=== PATIENT | female | born 1990 | race Caucasian/White ===

== ENCOUNTER 2018-02-24 06:09 | Day surgery (SDC) | payer OTHER ==
[~2018-02-24] VITALS: Ht 152.4 cm; Wt 136.1 kg
--- NOTE | ~2018-02-24 | OP ---
PATIENT NAME: ANGELA DAVENPORT MEDICAL RECORD: [id number] :88 LOCATION:[facility] ADMISSION DATE: SURGEON: NEVILLE ESCAMILLA MD DATE OF OPERATION: 02/24/2018 PREOPERATIVE DIAGNOSIS: Missed . POSTOPERATIVE DIAGNOSIS: Missed . PROCEDURE: Dilation and evacuation. SURGEON: Neville Escamilla MD ANESTHESIOLOGIST: Oliver Morfin MD ANESTHETIC: General anesthetic with endotracheal intubation. FINDINGS: Uterus is 8-week size. Moderate amounts of products of conception returned at the time of suction D&E. SPECIMEN REMOVED: Products of conception. SPECIMEN DISPOSITION: Pathology. ESTIMATED BLOOD LOSS: Less than or equal to 75 cc. FLUIDS: 800 cc lactated Ringer's. URINE OUTPUT: Quantity sufficient void prior to this procedure. COMPLICATIONS: None. DRAINS: None. INDICATIONS: The patient is a 27-year-old female with a known missed . The patient is consented for dilation and evacuation. Risks and benefits have been described and she acknowledged understanding. DESCRIPTION OF PROCEDURE: After informed consent was assured, the patient was taken to the operating room where anesthetic was obtained and she was placed in stirrups. The patient now has speculum introduced in the vagina. The cervix was grasped and dilated to accommodate an 8 curved suction curette. This curette was passed to the fundus and suction applied. Products of conception is removed on several passes. Sharp curettage was now performed and good cry was obtained throughout. Another pass with the suction device removed all remaining clot and debris. The single tooth tenaculum was removed and the puncture sites occluded with ring forceps. The ring forceps were removed at the time of the patient being taken down from the stirrups. Sponge, lap, and needle counts correct times 2. The patient was awakened and went to the recovery room in stable condition. TRANSINT:[id number] Voice Confirmation ID: [id number] DOCUMENT ID: [id number] OPERATIVE REPORT [id number] ANGELA DAVENPORT NEVILLE ESCAMILLA MD CC: [id number] DICTATION DATE: 03/15/18 0749 STOCK MANAGER: 03/15/18 0809 [facility] 02/24/18 [facility] [address] [place] [address]
[2018-02-24 08:04] LABS: BASOPHILS 0.6 % (0-2); EOSINOPHILS 2.9 % (0-7); HEMATOCRIT 36.5 % (36.0-48.0); HEMOGLOBIN 12.1 g/dL (12-16); IMMATURE GRANULOCYTES 0.1 % (0-5); LYMPHOCYTES 22.2 % (15-50); MCH 29.7 pg (26.0-34.0); MCHC 33.2 g/dL (31.0-37.0); MCV 89.7 fL (80.0-100.0); MEAN PLATELET VOLUME 9.7 fL (7.4-10.4); MONOCYTES 8.6 % (2-11); NEUTROPHILS 65.6 % (40-80); PLATELET COUNT 309 10x3/uL (130-400); RBC 4.07 10x6/uL (4.00-5.40); RDW 14.3 % (11.5-14.5); WBC 8.3 10x3/uL (4.8-10.8)
[2018-02-24] MEDS ORDERED: PROTONIX40 MG PO (08:11)
[2018-02-24] MEDS ORDERED: VISTARIL50 MG PO (08:12)
[2018-02-24] MEDS ORDERED: PROZAC20 MG PO (08:12)
[2018-02-24] MEDS ORDERED: PRENATAL COMPLE1 TAB PO (08:12)
[2018-02-24] MEDS ORDERED: TIROSINT75 MCG PO (08:12)
[2018-02-24 08:22] VITALS: BP 145/79; Ht 152.4 cm; Wt 136.1 kg
== END 2018-02-24 12:15 | disposition home or self-care (01) ==
LOC: D.OPS 06:09
PROVIDERS: Obstetrics & Gynecology
DX: O02.1 Missed abortion (principal)

== ENCOUNTER → 2019-02-26 15:19 | Outpatient (CLI) | payer BC ==
[2018-02-24 08:22] VITALS: BMI 58.7
[~2019-02-26 15:19] MED LIST: PRENATAL COMPLE1 TAB PO; PROTONIX40 MG PO; PROZAC20 MG PO; TIROSINT75 MCG PO; VISTARIL50 MG PO
[2019-02-26 17:46] LABS: APPEARANCE CLEAR (CLEAR); BILIRUBIN NEGATIVE (NEGATIVE); COLOR YELLOW (YELLOW); GLUCOSE NEGATIVE (NEGATIVE); KETONE NEGATIVE (NEGATIVE); NITRITE NEGATIVE (NEGATIVE); PROTEIN NEGATIVE (NEGATIVE); UROBILINOGEN NORMAL (NORMAL)
== END | disposition home or self-care (01) ==
LOC: D.LDO 15:19
PROVIDERS: ATTEND Obstetrics & Gynecology
DX: O26.893 Other specified pregnancy related conditions, third trimester (principal); Z3A.31 31 weeks gestation of pregnancy

== ENCOUNTER 2019-03-13 20:47 | Outpatient (CLI) | payer BC | END 2019-03-14 02:41 | disposition home or self-care (01) | LOC: D.LDO 20:47 | DX: O26.893 Other specified pregnancy related conditions, third trimester (principal); Z3A.32 32 weeks gestation of pregnancy ==

== ENCOUNTER → 2019-03-23 09:28 | Outpatient (CLI) | payer BC ==
[2018-02-24 08:22] VITALS: BMI 58.7
[~2019-03-23 09:28] MED LIST changes: +ACETAMINOPHEN500 M1 PO; +BENADRYL50 MG; +COLACE100 MG PO; +CYCLOBENZAPRINE10 MG PO; +DILAUDID2 MG PO; +FOLIC ACID1 MG PO; +REGLAN10 MG PO; +TORADOL10 MG PO; +VITAMIN B-6100 MG PO; +XANAX2 MG PO
[2019-03-23 10:12] LABS: BASOPHILS 0.2 % (0-2); EOSINOPHILS 1.6 % (0-7); HEMATOCRIT 32.5 % (36.0-48.0); HEMOGLOBIN 10.7 g/dL (12-16); IMMATURE GRANULOCYTES 0.2 % (0-5); LYMPHOCYTES 10.9 % (15-50); MCHC 32.9 g/dL (31.0-37.0); MCV 88.1 fL (80.0-100.0); MEAN PLATELET VOLUME 9.8 fL (7.4-10.4); MONOCYTES 5.6 % (2-11); NEUTROPHILS 81.5 % (40-80); PLATELET COUNT 311 10x3/uL (130-400); RBC 3.69 10x6/uL (4.00-5.40); WBC 11.2 10x3/uL (4.8-10.8)
[2019-03-23 10:28] LABS: ALBUMIN 2.3 g/dL (3.4-5.0); ALKALINE PHOSPHATASE 188 U/L (46-116); ALT (SGPT) 17 U/L (10-68); BILIRUBIN - DIRECT 0.17 mg/dL (0.00-0.30); BILIRUBIN - INDIRECT 0.15 mg/dL (0.00-1.00); BILIRUBIN - TOTAL 0.32 mg/dL (0.2-1.3); CALC OSMOLALITY 275 mosm/kg (275-300); CALCIUM 8.8 mg/dL (8.5-10.1); CARBON DIOXIDE 24.6 mmol/L (21.0-32.0); CHLORIDE - SERUM 106 mmol/L (98-107); CREATININE - SERUM 0.6 mg/dL (0.6-1.3); GLUCOSE 96 mg/dL (74-106); POTASSIUM - SERUM 3.5 mmol/L (3.5-5.1); PROTEIN - SERUM 6.3 g/dL (6.4-8.2); SODIUM 139 mmol/L (136-145); UREA NITROGEN 8 mg/dL (7-18); URIC ACID 3.8 mg/dL (2.6-7.2); eGFR NON AFRICAN AMERICAN > 90 mL/min (90-120)
[2019-03-24 19:28] LABS: PROTEIN - URINE 42.6 mg/dL (0.0-11.9)
== END | disposition home or self-care (01) ==
LOC: D.LDO 09:28
PROVIDERS: ATTEND Obstetrics & Gynecology
DX: O16.3 Unspecified maternal hypertension, third trimester (principal); Z3A.34 34 weeks gestation of pregnancy

== ENCOUNTER → 2019-03-24 20:23 | Outpatient (CLI) | payer BC ==
[2018-02-24 08:22] VITALS: BMI 58.7
[~2019-03-24 20:23] MED LIST changes: -ACETAMINOPHEN500 M1 PO; -BENADRYL50 MG; -COLACE100 MG PO; -CYCLOBENZAPRINE10 MG PO; -DILAUDID2 MG PO; -FOLIC ACID1 MG PO; -REGLAN10 MG PO; -TORADOL10 MG PO; -VITAMIN B-6100 MG PO; -XANAX2 MG PO
[2019-03-24 20:56] LABS: BASOPHILS 0.2 % (0-2); EOSINOPHILS 1.1 % (0-7); HEMATOCRIT 30.7 % (36.0-48.0); HEMOGLOBIN 10.3 g/dL (12-16); IMMATURE GRANULOCYTES 0.4 % (0-5); LYMPHOCYTES 14.2 % (15-50); MCH 29.4 pg (26.0-34.0); MCHC 33.6 g/dL (31.0-37.0); MCV 87.7 fL (80.0-100.0); MEAN PLATELET VOLUME 10.2 fL (7.4-10.4); MONOCYTES 7.1 % (2-11); PLATELET COUNT 306 10x3/uL (130-400); WBC 11.3 10x3/uL (4.8-10.8)
[2019-03-24 21:09] LABS: ALBUMIN 2.1 g/dL (3.4-5.0); ALKALINE PHOSPHATASE 187 U/L (46-116); ALT (SGPT) 19 U/L (10-68); BILIRUBIN - DIRECT 0.16 mg/dL (0.00-0.30); BILIRUBIN - INDIRECT 0.12 mg/dL (0.00-1.00); BILIRUBIN - TOTAL 0.28 mg/dL (0.2-1.3); CALC OSMOLALITY 274 mosm/kg (275-300); CALCIUM 8.4 mg/dL (8.5-10.1); CARBON DIOXIDE 23.6 mmol/L (21.0-32.0); CHLORIDE - SERUM 104 mmol/L (98-107); CREATININE - SERUM 0.6 mg/dL (0.6-1.3); GLUCOSE 115 mg/dL (74-106); POTASSIUM - SERUM 3.4 mmol/L (3.5-5.1); SODIUM 138 mmol/L (136-145); UREA NITROGEN 7 mg/dL (7-18); URIC ACID 4.1 mg/dL (2.6-7.2); eGFR NON AFRICAN AMERICAN > 90 mL/min (90-120)
== END | disposition home or self-care (01) ==
LOC: D.LDO 20:23
PROVIDERS: ATTEND Obstetrics & Gynecology
DX: O26.893 Other specified pregnancy related conditions, third trimester (principal); Z3A.34 34 weeks gestation of pregnancy

== ENCOUNTER → 2019-03-26 12:05 | Outpatient (CLI) | payer BC ==
[2018-02-24 08:22] VITALS: BMI 58.7
[~2019-03-26 12:05] MED LIST changes: +ACETAMINOPHEN500 M1 PO; +BENADRYL50 MG; +COLACE100 MG PO; +CYCLOBENZAPRINE10 MG PO; +DILAUDID2 MG PO; +FOLIC ACID1 MG PO; +REGLAN10 MG PO; +TORADOL10 MG PO; +VITAMIN B-6100 MG PO; +XANAX2 MG PO
== END | disposition home or self-care (01) ==
LOC: D.LDO 12:05
PROVIDERS: ATTEND Obstetrics & Gynecology
DX: O16.3 Unspecified maternal hypertension, third trimester (principal); Z3A.35 35 weeks gestation of pregnancy

== ENCOUNTER → 2019-03-28 15:29 | Outpatient (CLI) | payer BC ==
[2018-02-24 08:22] VITALS: BMI 58.7
[~2019-03-28 15:29] MED LIST changes: -ACETAMINOPHEN500 M1 PO; -BENADRYL50 MG; -COLACE100 MG PO; -CYCLOBENZAPRINE10 MG PO; -DILAUDID2 MG PO; -FOLIC ACID1 MG PO; -REGLAN10 MG PO; -TORADOL10 MG PO; -VITAMIN B-6100 MG PO; -XANAX2 MG PO
== END | disposition home or self-care (01) ==
LOC: D.LDO 15:29
PROVIDERS: ATTEND Obstetrics & Gynecology
DX: O36.8130 Decreased fetal movements, third trimester, not applicable or unspecified (principal); Z3A.35 35 weeks gestation of pregnancy

== ENCOUNTER → 2019-04-03 12:40 | Outpatient (CLI) | payer BC ==
[2018-02-24 08:22] VITALS: BMI 58.7
[~2019-04-03 12:40] MED LIST changes: +ACETAMINOPHEN500 M1 PO; +BENADRYL50 MG; +COLACE100 MG PO; +CYCLOBENZAPRINE10 MG PO; +DILAUDID2 MG PO; +FOLIC ACID1 MG PO; +REGLAN10 MG PO; +TORADOL10 MG PO; +VITAMIN B-6100 MG PO; +XANAX2 MG PO
== END | disposition home or self-care (01) ==
LOC: D.LDO 12:40
PROVIDERS: ATTEND Obstetrics & Gynecology
DX: O26.893 Other specified pregnancy related conditions, third trimester (principal); Z3A.36 36 weeks gestation of pregnancy

== ENCOUNTER → 2019-04-06 13:57 | Outpatient (CLI) | payer BC ==
[2018-02-24 08:22] VITALS: BMI 58.7
--- NOTE | 2019-04-06 15:17 | NUR ---
NEW BAG NS W/20 UNITS PITOCIN UP TO INFUSE AT 125ML/HR.
[2019-04-07 19:31] LABS: PROTEIN - URINE 63.7 mg/dL (0.0-11.9)
== END | disposition home or self-care (01) ==
LOC: D.LDO 13:57
PROVIDERS: ATTEND Obstetrics & Gynecology
DX: O10.913 Unspecified pre-existing hypertension complicating pregnancy, third trimester (principal); Z3A.36 36 weeks gestation of pregnancy

== ENCOUNTER 2019-04-08 23:35 | Inpatient (IN) | payer BC ==
[~2019-04-08 23:35] MED LIST changes: -ACETAMINOPHEN500 M1 PO; -BENADRYL50 MG; -COLACE100 MG PO; -CYCLOBENZAPRINE10 MG PO; -DILAUDID2 MG PO; -REGLAN10 MG PO; -TORADOL10 MG PO; -XANAX2 MG PO
[2019-04-09 00:44] LABS: BASOPHILS 0.3 % (0-2); EOSINOPHILS 1.3 % (0-7); HEMATOCRIT 40.3 % (36.0-48.0); HEMOGLOBIN 13.8 g/dL (12-16); IMMATURE GRANULOCYTES 0.5 % (0-5); MCH 29.7 pg (26.0-34.0); MCHC 34.2 g/dL (31.0-37.0); MCV 86.9 fL (80.0-100.0); MEAN PLATELET VOLUME 10.8 fL (7.4-10.4); MONOCYTES 7.3 % (2-11); NEUTROPHILS 73.6 % (40-80); PLATELET COUNT 221 10x3/uL (130-400); RBC 4.64 10x6/uL (4.00-5.40); RDW 14.6 % (11.5-14.5); WBC 10.6 10x3/uL (4.8-10.8)
[2019-04-09 00:55] LABS: APTT 32.3 SECONDS (22.8-39.4); INR 0.96 (0.85-1.17); PROTIME 12.3 SECONDS (11.6-15.0)
[2019-04-09 00:58] LABS: ALBUMIN 2.3 g/dL (3.4-5.0); ALKALINE PHOSPHATASE 223 U/L (46-116); ALT (SGPT) 16 U/L (10-68); BILIRUBIN - TOTAL 0.18 mg/dL (0.2-1.3); CALC OSMOLALITY 277 mosm/kg (275-300); CALCIUM 8.4 mg/dL (8.5-10.1); CHLORIDE - SERUM 105 mmol/L (98-107); CREATININE - SERUM 0.7 mg/dL (0.6-1.3); GLUCOSE 109 mg/dL (74-106); POTASSIUM - SERUM 4.1 mmol/L (3.5-5.1); PROTEIN - SERUM 5.7 g/dL (6.4-8.2); SODIUM 139 mmol/L (136-145); UREA NITROGEN 11 mg/dL (7-18); URIC ACID 4.5 mg/dL (2.6-7.2); eGFR NON AFRICAN AMERICAN > 90 mL/min (90-120)
[2019-04-09 03:54] VITALS: BP 134/79
[2019-04-09] MEDS ORDERED: CYCLOBENZAPRINE10 MG PO (04:33)
[2019-04-09] MEDS ORDERED: BENADRYL50 MG (04:34)
[2019-04-09] MEDS ORDERED: ACETAMINOPHEN500 M1 PO (04:35)
[2019-04-10 07:18] LABS: RAPID PLASMA REAGIN Non Reactive (Non Reactive)
[2019-04-11] VITALS (11 sets, daily range): BP systolic 120–152; BP diastolic 64–90
--- NOTE | 2019-04-11 02:57 | NUR ---
RECEIVED PT VIA BED FROM [facility] PRIMARY C/S PER DR ESCAMILLA, PT TO ROOM 1220, MIDLINE IN UPPER LEFT ARM INTACT WITH NO REDNESS OR EDEMA INFUSING VIA PUMP NS WITH PITOCIN AT 125 ML/HR, FF, ML, U/1, BIKINI WITH SMALL DRESSING CDI WITH NO DRAINAGE NOTED, FRESH ICE PACK TO ABD, MOD BLEEDING NOTED WITH NO CLOTS, PT HAD SMALL BM, PT CLEANED UP WITH WET WARM WIPES AND WASH CLOTH, PINK PAD, BLUE CHUX AND ELIANA PAD CHANGED PER THIS RN AND AMERICA TALAVERA RN, PT FAITH ROLLING DURING ELIANA CARE, VS INITIATED, VARGAS CATH INTACT DRAINING DARK YELLOW URINE, EMPTIED VARGAS CATH AT THIS TIME, PT INQUIRED ABOUT TORADOL, INFORMED PT THAT I WILL LOOK OVER ORDERS, PT ORIENTED TO ROOM, BED IN LOW POSITION, SIDE RAILS X 2, CALL LIGHT IN REACH, FOB AT BEDSIDE
--- NOTE | 2019-04-11 03:49 | NUR ---
PT INFORMED THAT SHE DID NOT HAVE TORADOL ORDERED, PT VERBALIZES UNDERSTANDING, AFTER SCANNING THE DILAUDID, HITTIN SAVE AND RECOMPILE, PT DECIDED SHE ONLY WANTED TO TAKE 1MG AT THIS TIME, ADM 1MG SIVP PER MD ORDERS, SEE EMAR, SCD'S CONNECTED TO PUMP AND WORKING PROPERLY, PT DENIES FURTHER NEEDS, FOB AT BEDSIDE
--- NOTE | 2019-04-11 04:40 | NUR ---
PT REPORTS PAIN IS STILL ABOUT THE SAME, REFUSES TO TAKE ANY MORE PAIN MED AT THIS TIME, NSY NURSE IN ROOM ASSISTING PT WITH , PT DENIES NEEDS AT THIS TIME, FOB AT BEDSIDE
--- NOTE | 2019-04-11 06:15 | NUR ---
PT AROUSES TO OPENING OF DOOR, VS FINISHED, I&O'S COLLECTED, PT C/O INC PAIN, OFFERED PT TO HAD ANOTHER 1MG OF DILAUDID OR WAIT TILL 7:30 TO HAVE 2MG ADM, PT REQUESTS TO WAIT TILL 7:30, ELIANA CARE DONE WITH WET WARM WASH CLOTHS, SCANT VAG BLEEDING NOTED, ELIANA PAD CHANGED, SCD'S CONTINUE ON AND WORKING PROPERLY, FRESH ICE PACK TO ABD, PT DENIES FURTHER NEEDS, FOB AT BEDSIDE
--- NOTE | 2019-04-11 07:00 | NUR ---
REPORT TO DARIEN JAVIER RN
--- NOTE | 2019-04-11 07:30 | NUR ---
VS OBTAINED PER DARIEN JAVIER RN
--- NOTE | 2019-04-11 07:34 | NUR ---
ASSESSMENT PER FLOW SHEET, MIDLINE IN UPPER LEFT ARM INTACT WITH NO REDNESS OR EDEMA INFUSING VIA PUMP NS WITH PITOCIN AT 125 ML/HR, BIKINI LINE INC WITH SMALL DRESSING CDI WITH SLIGHT DRIED DRAINAGE NOTED, ICE PACK TO ABD, FF, ML, U/1, SCANT BLEEDING NOTED WITH NO CLOTS, VARGAS CATH INTACT DRAINING DARK YELLOW URINE, PT ENC TO DRINK, ADM DILAUDID SIVP PER MD ORDERS FOR PAIN, SEE EMAR, SCD'S ON AND WORKING PROPERLY, PT REQUESTS TO GET SOME REST AT THIS TIME, DENIES FURTHER NEEDS, FOB ASLEEP IN RECLINER
--- NOTE | 2019-04-11 08:41 | NUR ---
filling out menu. asking about sitting up in bed. will call anesthesia.
--- NOTE | 2019-04-11 08:44 | NUR ---
weston lei rn speaks with mindi hernandez crna and order that pt may sit up in bed.
--- NOTE | 2019-04-11 08:50 | NUR ---
moved self up in bed. hob elevated per request.
--- NOTE | 2019-04-11 08:58 | OP ---
PATIENT NAME: ANGELA DAVENPORT MEDICAL RECORD: [id number] :88 LOCATION:[facility] ADMISSION DATE:04/08/19 SURGEON: YURI ESCAMILLA MD DATE OF OPERATION: 04/11/2019 PREOPERATIVE DIAGNOSES: 1. Preeclampsia at 38 weeks. 2. Non-reassuring surveillance. 3. Morbid obesity. POSTOPERATIVE DIAGNOSES: 1. Mother delivered at 38 weeks. 2. Non-reassuring surveillance. 3. Morbid obesity. PROCEDURE: Primary low transverse section. SURGEON: Yuri Escamilla MD PENCIL SORTER: Maikel Clayton ANESTHESIA: Spinal. FINDINGS: Viable male infant, vertex presentation, Apgars 9 and 9, weight 6 pounds ____ ounce. Unremarkable uterus, tubes, and ovaries bilaterally. SPECIMEN REMOVED: Placenta. SPECIMEN DISPOSITION: Discarded. ESTIMATED BLOOD LOSS: 700 cc. URINE: 200 cc of concentrated urine. FLUIDS: 1500 cc of lactated Ringer's. COMPLICATIONS: None. DRAINS: Segundo to gravity. INDICATIONS: The patient is a 28-year-old G1, para 0 at 38 weeks gestation, undergoing induction of labor for preeclampsia. The patient has advanced to 4 cm from a closed cervix and has bradycardic event. The patient, after counseling, desires primary section. DESCRIPTION OF PROCEDURE: After informed consent was assured, the patient was taken to the operating room where anesthetic was obtained. The patient is now prepped and draped and anesthetic found to be adequate. The procedure was begun. A low transverse incision was made on the abdomen, carried down to the underlying layer of the fascia, which was opened in the midline and extended laterally. The fascia is dissected free of the rectus bellies superiorly and inferiorly. The rectus bellies were now in the midline and peritoneum was entered. The peritoneal opening was extended and the bladder blade inserted. Low transverse hysterotomy was performed and the was delivered on to the abdomen atraumatically. The uterus was exteriorized, cleared of all OPERATIVE REPORT [id number] ANGELA DAVENPORT clot and debris after the cords were doubly clamped and the cord cut and the infant passed to the attendant. The placenta being delivered via Crede maneuver, the uterus is cleared of all clot and debris and hysterotomy is closed with running locked stitch of chromic. A second imbricating stitch was performed to reinforce the stitch. Inspection revealed adequate hemostasis. The posterior cul-de-sac was irrigated and irrigant removed and the uterus returned to the abdomen. The pelvis again was irrigated and inspection of the hysterotomy revealed adequate hemostasis. The rectus bellies were reapproximated in the midline with a loose interrupted chromic stitch. Fascia was now closed with a looped PDS and subcutaneous tissues were irrigated, bleeding vessels cauterized, and reapproximated with plain gut. Skin was closed with stevo and sterile dressing applied. Sponge, lap, needle counts were correct times 2 at the close of this procedure. Hemabate was given intraoperatively for uterine tone. Approximately 125mcg was placed at each cornual region with a tuberculin syringe. TRANSINT:[id number] Voice Confirmation ID: [id number] DOCUMENT ID: [id number] YURI ESCAMILLA MD at 0858 CC: [id number] DICTATION DATE: 04/11/19 014 DATABASE SOFTWARE TECHNICIAN: 04/11/19 0611 [facility] [address] [id number]
--- NOTE | 2019-04-11 10:42 | NUR ---
PT MECHANICAL DRAFTER LIGHT, PT ATTEMPTED TO DISCONNECT IV TO CHANGE GOWN, HAD TO CHANGE BEDDING, PT CLEANED UP WITH WET WARM WASH CLOTHS, LITE VAG BLEEDING NOTED WITH NO CLOTS, COMPLETE BEDDING CHANGE, ASSISTED PT WITH HER OWN GOWN, IV FLUSHED AND RESTARTED, INFUSING WITH NO DIFFICULTY, SCD'S PLACED BACK ON AND WORKING PROPERLY, FRESH ICE PACK, PT DENIES FURTHER NEEDS
--- NOTE | 2019-04-11 11:35 | NUR ---
PT PASSEMENTERIE WORKER LIGHT, PT INQUIRES ABOUT HOME MEDS, PT REQUESTING HER BENADRYL AND PROZAC, INFORMED PT THAT I WILL CALL DR ESCAMILLA
--- NOTE | 2019-04-11 11:40 | NUR ---
DR ESCAMILLA NOTIFIED, REPORT OF PT'S REQUEST FOR BENADRYL AND PROZAC, ORDERS RECEIVED TO REMOVE VARGAS, SALINE LOCK IV, FEBRUARY SHOWER, AMB, REGULAR DIET, AND ADM BENADRYL AND PROZAC, ORDERS RECEIVED AND READ BACK
--- NOTE | 2019-04-11 11:48 | NUR ---
INFORMED PT OF DR STEVE ORDERS, PT STATES "THANK YOU SO MUCH", PT INFANT AT THIS TIME, FOB AT BEDSIDE
--- NOTE | 2019-04-11 12:18 | NUR ---
GOYO WILCOX, HOWIE IN ROOM GOING OVER INFORMATION, ADM BENADRYL AND PERCOCET PER MD ORDERS, SEE EMAR, WITH FRESH H20, PT DENIES FURTHER NEEDS, FOB HOLDING , FAMILY AT BEDSIDE
--- NOTE | 2019-04-11 12:48 | NUR ---
LAB TO ROOM FOR BLOOD DRAW
--- NOTE | 2019-04-11 13:00 | NUR ---
ROUNDS MADE, PT STATES "CAN YOU CLEAN ME UP, I FEEL LIKE I'M SWIMMING", THIS RN AND DARIEN JAVIER RN IN ROOM, LITE BLEEDING NOTED WITH NO CLOTS, ELIANA CARE DONE WITH WET WARM WASH CLOTHS, ELIANA PAD CHANGED, INFORMED PT THAT VARGAS CATH WILL BE REMOVED SHORTLY, PT VERBALIZES UNDERSTANDING
[2019-04-11 13:25] LABS: BASOPHILS 0.1 % (0-2); EOSINOPHILS 0.7 % (0-7); HEMATOCRIT 29.1 % (36.0-48.0); HEMOGLOBIN 9.4 g/dL (12-16); IMMATURE GRANULOCYTES 0.4 % (0-5); LYMPHOCYTES 12.4 % (15-50); MCH 28.7 pg (26.0-34.0); MCHC 32.3 g/dL (31.0-37.0); MEAN PLATELET VOLUME 10.6 fL (7.4-10.4); MONOCYTES 8.4 % (2-11); PLATELET COUNT 253 10x3/uL (130-400); RBC 3.27 10x6/uL (4.00-5.40); RDW 14.6 % (11.5-14.5); WBC 13.8 10x3/uL (4.8-10.8)
--- NOTE | 2019-04-11 13:33 | NUR ---
SITTING UP IN BED EATING REG DIET. STATES THAT SHE HAS BEEN PASSING GAS. RATES PAIN A 7 ON SCALE OF 0-10.
--- NOTE | 2019-04-11 14:30 | NUR ---
PHONED DR ESCAMILLA PHONE- IN OR.
--- NOTE | 2019-04-11 14:50 | NUR ---
DR ESCAMILLA IN OFFICE NOW- PHONED AND SPOKE WITH HIS PANTRY STEWARD/STEWARDESS TO HAVE HIM CALL WS WHEN HE CAN- WILL REPORT VS, LABS.
--- NOTE | 2019-04-11 15:20 | NUR ---
REPORT TO DR ESCAMILLA AT OFFICE. VS, CBC. NEW ORDER RECEIVED.
--- NOTE | 2019-04-11 15:25 | NUR ---
INFANT AT BREAST AND VISITOR AT BEDSIDE. STATES WILL CALL WHEN READY FOR VARGAS TO BE REMOVED.
--- NOTE | 2019-04-11 15:57 | NUR ---
IV MID LINE -SALINE LOCKED AND FLUSHED WITH 10CCNS. VARGAS CATH REMOVED POST BULB DEFLATED WITH 350CC DARK URINE IN CONTAINER. ELIANA CARE DONE- SMALL LOCHIA NOTED ON PAD. NO CLOTS.
--- NOTE | 2019-04-11 16:48 | NUR ---
STATES PAIN IS DOWN TO 5 ON SCALE OF 0-10. TALKING WITH VISITORS.
--- NOTE | 2019-04-11 17:30 | NUR ---
DR ESCAMILLA HERE TO SEE PT. NEW ORDERS RECEIVED.
--- NOTE | 2019-04-11 17:45 | NUR ---
DR ESCAMILLA EXITS PT ROOM AND REQUESTS THAT DILAUDID 1MG IV BE GIVEN NOW AND TO GIVEN PROZAC NOW.
--- NOTE | 2019-04-11 18:20 | NUR ---
states that pain is down to a 4 on scale of 0-10. no requests at this time.
--- NOTE | 2019-04-11 19:10 | NUR ---
BEDSIDE REPORT REC'D FROM Joshua JAVIER RN. PT UP TO VOID. VOIDED 450 MLS IN HAT. LINENS CHANGED. VSS. FUNDUS FIRM MIDLINE AND U2 WITH SCANT RUBRA LOCHIA, NO CLOTS NOTED IN HAT OR ON PERIPAD. SHIFT ASSESSMENT COMPLETED PER FLOWSHEET. DRSG REMAINS IN PLACE TO LOWER TRANSVERSE ABD INCISION, CLEAN, DRY, AND INTACT, NO DRAINAGE NOTED. BOWEL SOUNDS PRESENT AND ACTIVE X4 QUADRANTS, REPORTS THAT SHE IS PASSING FLATUS AND VOIDED WITHOUT DIFFICULTY. 2+BLE PITTING EDEMA. REFUSES SCD'S. MIDLINE TO LEFT UPPER ARM. MODERATE ASSIST REQUIRED TO GET OOB AND BACK TO BED. PLAN OF CARE DISCUSSED WITH PT AND S/O, BOTH VERBALIZE UNDERSTANDING AND DENY QUESTIONS. S/O AT BEDSIDE, SUPPORTIVE AND ATTENTIVE TO PT AND NEEDS. BED IN LOW POSITION WITH UPPER SIDE RAILS RAISED X2. CALL LIGHT AND PHONE WITHIN REACH. WILL CONTINUE TO MONITOR AND ASSIST PRN.
--- NOTE | 2019-04-11 20:06 | NUR ---
INFANT CURRENTLY. ICE PACK AND FAN PROVIDED PER REQUEST. DENIES ADDITIONAL NEEDS. BED IN LOW POSITION WITH UPPER SIDE RAILS RAISED X2. CALL LIGHT AND PHONE WITHIN REACH. WILL CONTINUE TO MONITOR AND ASSIST PRN. SIGNIFICANT OTHER REMAINS AT BEDSIDE, SUPPORTIVE AND ATTENTIVE TO PT AND NEEDS.
--- NOTE | 2019-04-11 21:13 | NUR ---
SYNTHROID OFFERED, PT STATES THAT SHE USUALLY TAKES IT CLOSER TO 2200 AND WANTS TO TAKE PRIOR TO GOING TO SLEEP. PAIN 01/24, DENIES NEED FOR INTERVENTION AT THIS TIME, STATES THAT SHE WANTS TO TAKE XANAX, PAIN MEDICATION AND SYNTHROID AROUND 2200 SO SHE CAN "TRY TO REST TONIGHT." ICE WATER PROVIDED. DENIES ADDITIONAL NEEDS. ENCOURAGED TO GET OOB AND AMBULATE ON UNIT AND EMPTY BLADDER, STATES THAT SHE DOESN'T NEED TO VOID CURRENTLY AND WILL AMBULATE ONCE SHE GETS PAIN MEDICATIONS. INFANT IN OPEN CRIB AT BEDSIDE. SIGNIFICANT OTHER REMAINS AT BEDSIDE, SUPPORTIVE AND ATTENTIVE TO PT AND INFANT NEEDS.
--- NOTE | 2019-04-11 22:10 | NUR ---
C/O PAIN 05/26, INCISIONAL BURNING AND STINGING AND ABD CRAMPING. 8 MG PO HYDROMORPHONE GIVEN PER ORDER AND PT REQUEST. XANAX AND SYNTHROID GIVEN PER ORDER AND PT REQUEST. UP TO VOID, VOIDED 400 IN HAT, SCANT RUBRA LOCHIA TO PAD, NO CLOTS NOTED TO PERIPAD OR IN HAT. REFUSES TO AMBULATE IN [place]. ASSISTED BACK TO BED AND WITH POSITIONING TO LEFT SIDE, PILLOWS PLACED BEHIND BACK FOR COMFORT AND SUPPORT. REFUSES SCD'S. INFANT PLACED IN PT'S ARMS. ICE WATER AND ICE PACK PROVIDED. DENIES ADDITIONAL NEEDS. BED IN LOW POSITION WITH UPPER SIDE RAILS RAISED X2. CALL LIGHT AND PHONE WITHIN REACH. WILL CONTINUE TO MONITOR AND ASSIST PRN.
--- NOTE | 2019-04-11 22:51 | NUR ---
PAIN REASSESSMENT COMPLETED. BONDING WITH INFANT. 01/24. DENIES NEED FOR ADDITIONAL INTERVERNTION. WILL CONTINUE TO MONITOR AND ASSIST PRN. BED IN LOW POSITION WITH UPPER SIDE RAILS RAISED X2. CALL LIGHT AND PHONE WITHIN REACH.
--- NOTE | 2019-04-12 00:01 | NUR ---
RESTING ON LEFT SIDE WITH EYES CLOSED, RESPIRATIONS REGULAR AND UNLABORED, NO S/S OF DISTRESS NOTED. BED IN LOW POSITION WITH UPPER SIDE RAILS RAISED X2. CALL LIGHT AND PHONE WITHIN REACH. WILL CONTINUE TO MONITOR AND ASSIST PRN.
[2019-04-12 01:03] VITALS: BP 127/82
--- NOTE | 2019-04-12 01:03 | NUR ---
C/O PAIN 03/26, INCISIONAL BURNING AND STINGING WITH ABD SORENESS AND CRAMPING, REQUESTS INTERVENTION. PERCOCET 10/325 MG GIVEN PER ORDER AND PT REQUEST. UP TO VOID. VOIDED 400 MLS LIGHT YELLOW URINE IN HAT, NO CLOTS PRESENT. SCANT RUBRA LOCHIA TO PERIPAD. VSS. FUNDUS FIRM, MIDLINE AND U2, SCANT RUBRA LOCHIA, NO CLOTS. ENCOURAGED TO AMBULATE IN [place]BRE[place]T, REFUSES AT THIS TIME. SHOWER OFFERED AND REFUSED, STATES THAT SHE WANTS TO REST WHILE IS IN NBN. REFUSES SCD'S. ICE WATER PROVIDED. VSS. WILL CONTINUE TO MONITOR. BED IN LOW POSITION WITH UPPER SIDE RAILS RAISED X2. CALL LIGHT AND PHONE WITHIN REACH. WILL CONTINUE TO MONITOR AND ASSIST PRN.
--- NOTE | 2019-04-12 02:34 | NUR ---
PAIN REASSESSMENT COMPLETED. RESTING QUIETLY WITH EYES CLOSED. RESPIRATIONS REGULAR AND UNLABORED, NO S/S OF DISTRESS NOTED. IN SEMI-FOWLERS. SIGNIFICANT OTHER RESTING AT BEDSIDE. BED IN LOW POSITION WITH UPPER SIDE RAILS RAISED X2. CALL LIGHT AND PHONE WITHIN REACH. WILL CONTINUE TO MONITOR AND ASSIST PRN.
--- NOTE | 2019-04-12 03:00 | NUR ---
RESTING IN SEMI-FOWLERS POSITION WITH EYES CLOSED. RESPIRATIONS REGULAR AND UNLABORED, NO S/S OF DISTRESS NOTED. SPOUSE RESTING AT BEDSIDE. INFANT REMAINS IN NBN. BED IN LOW POSITION WITH UPPER SIDE RAILS RAISED X2. CALL LIGHT AND PHONE WITHIN REACH. WILL CONTINUE TO MONITOR AND ASSIST PRN.
--- NOTE | 2019-04-12 05:02 | NUR ---
VSS. FUNDUS REMAINS FIRM, MIDLINE AND U2 WITH SCANT RUBRA LOCHIA, NO CLOTS. UP TO VOID WITH STANDBY ASSIST OF RN. PERICARE DONE PER PT. PANTIES PROVIDED. AMBULATORY IN ALBRECHT TO N AND BACK TO ROOM. C/O PAIN 6/10, INCISIONAL BURNING AND STINGING WITH ABD CRAMPING. HYDROMORPHONE GIVEN PER PT REQUEST. ICE WATER PROVIDED. REFUSES SCD'S. LT UPPER ARM MIDLINE FLUSHED WITHOUT DIFFICULTY, EXCELLENT BLOOD RETURN NOTED, NO S/S OF INFILTRATION. DRSG REMAINS CLEAN, DRY, AND INTACT. REFUSED DRSG REMOVAL UNTIL SHE SHOWERS, STATES THAT SHE WILL SHOWER WITH DAY SHIFT TODAY. BED IN LOW POSITION WITH UPPER SIDE RAILS RAISED X2. CALL LIGHT AND PHONE WITHIN REACH. SIGNIFICANT OTHER REMAINS AT BEDSIDE, SUPPORTIVE AND ATTENTIVE TO PT AND HER NEEDS.
[2019-04-12 05:03] VITALS: BP 136/80
--- NOTE | 2019-04-12 05:50 | NUR ---
PAIN REASSESSMENT COMPLETED, 12/24. DENIES ADDITIONAL NEEDS AT THIS TIME. BED IN LOW POSITION WITH UPPER SIDE RAILS RAISED X2. CALL LIGHT AND PHONE WITHIN REACH. WILL CONTINUE TO MONITOR AND ASSIST PRN.
[2019-04-12 08:01] VITALS: BP 115/72
--- NOTE | 2019-04-12 08:14 | NUR ---
AWAKE. PT SITTING UP IN BED. ASSESSMENT DONE. VERBAL RESPONSES APPRO TO QUESTIONS. KERN ON COMMAND. PT STATES THAT SHE WOULD LIKE STOOL SOFTNER AND BENADRYL THIS MORNING. FUNDUS UU/ SMALL LOCHIA NOTED ON PAD.
--- NOTE | 2019-04-12 09:37 | NUR ---
UP TO SHOWER TOLERATED WELL. LINENS CHANGED. ABD DRESSING REMOVED. AMBULATING IN HALLWAY.
--- NOTE | 2019-04-12 10:02 | NUR ---
RETURNS TO BED. CO HEADACHE -REQUESTS BP BE TAKEN. BP- 123/76. P 109
--- NOTE | 2019-04-12 10:28 | NUR ---
ENTERED ROOM-RESTING WITH EYES CLOSED. ASK IF SHE WAS READY FOR DILAUDID THAT SHE HAD REQUESTED TO BE GIVEN AT 1030 STATES YES. RATES PAIN A 4-5 WHEN MOVING. MED GIVEN PER REQUEST.
[2019-04-12 12:31] VITALS: BP 118/59
--- NOTE | 2019-04-12 12:32 | NUR ---
DOZING WHEN ENTER ROOM FOR VS. STATES THAT NOT HAVING PAIN AT THIS TIME. DENIES NEEDS.
--- NOTE | 2019-04-12 13:38 | NUR ---
UP TO BATHROOM TO VOID. AMBULATING IN HALLWAY.
--- NOTE | 2019-04-12 14:18 | NUR ---
SITTING UP IN BED TALKING WITH ER MOTHER. STATES THAT SHE WILL TAKE A PERCOCET FOR HEADACHE BUT DOES NOT NEED OTHER MEDICATION. RATES HEADACHE A 5 ON SCALE OF 0-10. STATES THAT SHE HAS SLEPT ABOUT 6 HOURS TODAY AND DENIES ANXIETY AT THIS TIME.
[2019-04-12 16:10] VITALS: BP 113/73
--- NOTE | 2019-04-12 16:21 | NUR ---
AMBULATING IN HALLWAY. STATES SHE IS STARTING TO FEEL GAS. WARM TEA AND BROTH SERVED. ALSO REQUESTING BENADRYL FOR ITCHING- NO RASH NOTED. MED GIVEN.
--- NOTE | 2019-04-12 16:39 | NUR ---
DR ESCAMILLA HERE TO SEE PT.
--- NOTE | 2019-04-12 17:30 | NUR ---
PT CO GAS PAIN -STATES MAKE IT STOP. ENCOURAGED TO LAY ON SIDE OR AMBULATE. NOTIFIED DR ESCAMILLA ORDER RECEIVED TO AMBULATE.
--- NOTE | 2019-04-12 18:32 | NUR ---
WALKING IN HALLWAY-STATES SHE IS PASSING SOME GAS.
--- NOTE | 2019-04-12 19:10 | NUR ---
PM ROUNDS MADE, PT TRYING TO BREASTFEED AT THIS TIME, GOYO WILCOX LPN IN ROOM ASSISTING PT, INFORMED PT THAT I WILL BE BACK SHORTLY TO DO ASSESSMENT, PT VERBALIZES UNDERSTANDING, DENIES NEEDS AT THIS TIME, FOB AND FAMILY AT BEDSIDE
--- NOTE | 2019-04-12 19:29 | NUR ---
PT AMB IN [place], GAIT STEADY
[2019-04-12 20:41] VITALS: BP 116/66
--- NOTE | 2019-04-12 20:41 | NUR ---
UPON ENTERING ROOM, PT IS GETTING OUT OF SHOWER, ASSISTED PT WITH DRYING SELF OFF, ELIANA PAD, PANTIES, AND GOWN, PT TO BED, ASSESSMENT PER FLOW SHEET, VS OBTAINED, FF, ML, U/1, PT REPORTS LITE BLEEDING WITH NO CLOTS, BIKINI INC WITH HEATHER CDI WITH NO DRAINAGE NOTED, ELIANA PAD OVER INC FOR COMFORT AND MOISTURE CONTROL, PT INST ON INC CARE, VERBALIZES UNDERSTANDING, PT REPORTS PASSING A SMALL AMOUNT OF FLATUS THIS MORNING, NO BM AND VOIDING WITH NO DIFFICULTY, PT REQUESTS PAIN MED WHEN DUE, INFORMED PT THAT PAIN MED WAS DUE AROUND 9:30 AND THAT I WILL ADM PAIN MED ALONG WITH HER 9:00 MEDS, PT VERBALIZES UNDERSTANDING, DENIES FURTHER NEEDS AT THIS TIME, INFANT IN OPEN CRIB CART AND FOB AT BEDSIDE
--- NOTE | 2019-04-12 21:38 | NUR ---
ADM 2100 MEDS AND PAIN MED, ALSO ADM, PER PT'S REQUEST, COLACE AND MYLICON, PT REQUESTED AND SERVED PRUNE [employer]/[place] [facility] [place] COCKTAIL, WARM BLANKET PLACED ON UPPER BACK, PT DENIES FURTHER NEEDS
--- NOTE | 2019-04-12 22:42 | NUR ---
PT READY FOR HER XANAX, ADM XANAX PER MD ORDERS, SEE EMAR, PT STATES "IT'S NOT GAS THAT IS MAKING ME HURT, BECAUSE I AM PASSING IT LEFT AND RIGHT, BUT I'M PRETTY SURE IT'S JUST THE BED", PT REPORTS THAT SHE IS READY TO GO HOME TO HER OWN BED, SALINE LOCK FLUSHED WITH NO DIFFICULTY, PT DENIES FURTHER NEEDS, FOB HANDS TO PT, ANOTHER PACIFIER PROVIDED
--- NOTE | 2019-04-13 00:19 | NUR ---
PT RESTING WITH EYES CLOSED, RESP QUIET, NO DISTRESS NOTED, LEFT UNDISTURBED AT THIS TIME, FOB HOLDING INFANT
--- NOTE | 2019-04-13 01:00 | NUR ---
REPORT TO NATIVIDAD FERRER RN
[2019-04-13 01:57] VITALS: BP 134/89
--- NOTE | 2019-04-13 01:57 | NUR ---
VSS. FUNDUS FIRM MIDLINE AND U2 WITH SCANT RUBRA LOCHIA, NO CLOTS. INCISION REMAINS WELL APPROXIMATED WITH HEATHER INTACT, NO DRAINAGE OR S/S OF INFECTION. BENADRYL AND MYLICON GIVEN PER PT REQUEST. C/O PAIN 6/10, CONSTANT HEADACHE WITH INCISIONAL BURNING AND STINGING AND ABD CRAMPING. PT OFFERED 4 MG AND 8 MG DOSE OF PO DILAUDAD. STATES THAT SHE WANTS 4 MG DOSE AT THIS TIME. ICE WATER PROVIDED PER REQUEST. C/O UPPER BACK PAIN ALSO, STATES "IT FEELS LIKE MY MUSCLES ARE JUST TIGHT." WARM BLANKET PROVIDED, VERBALIZES RELIEF OF DISCOMFORT TO UPPER BACK. BED IN LOW POSITION WITH UPPER SIDE RAILS RAISED X2. CALL LIGHT AND PHONE WITHIN REACH. WILL CONTINUE TO MONITOR. Scout JOHNSON RN AT BEDSIDE AT THIS TIME.
--- NOTE | 2019-04-13 02:15 | NUR ---
REPORTS THAT WARM BLANKET IS NO LONGER WARM AND UPPER BACKACHE RETURNED. REQUESTS K-PAD. DR. ESCAMILLA CONTACTED AND ORDERS REC'D. K-PAD PROVIDED AND PT INSTRUCTED ON USE. DENIES ADDITIONAL NEEDS.
--- NOTE | 2019-04-13 02:38 | NUR ---
PAIN REASSESSMENT COMPLETED. RESTING QUIETLY WITH EYES CLOSED IN SEMI-FOWLERS POSITION. RESPIRATIONS REGULAR AND UNLABORED, NO S/S OF DISTRESS NOTED. RESTING QUIETLY IN OPEN CRIB AT BEDSIDE. BED IN LOW POSITION WITH UPPER SIDE RAILS RAISED X2. CALL LIGHT AND PHONE WITHIN REACH. WILL CONTINUE TO MONITOR AND ASSIST.
[2019-04-13 05:33] VITALS: BP 111/73
--- NOTE | 2019-04-13 05:33 | NUR ---
VSS. FUNDUS REMAINS FIRM MIDLINE AND U2 WITH SCANT RUBRA LOCHIA, NO CLOTS NOTED. DENIES PAIN. MIDLINE TO LEFT UPPER ARM FLUSHED WITHOUT DIFFICULTY. GOOD BLOOD RETURN NOTED. ICE WATER PROVIDED. DENIES ADDITIONAL NEEDS. BED IN LOW POSITION WITH UPPER SIDE RAILS RAISED X2. CALL LIGHT AND PHONE WITHIN REACH. WILL CONTINUE TO MONITOR AND ASSIST PRN
[2019-04-13 08:11] VITALS: BP 130/81
--- NOTE | 2019-04-13 08:21 | NUR ---
ENTERED ROOM. PT AWAKENS WHEN DOOR OPENS. VERBAL RESPONSES APPRO TO QUESTIONS. KERN AT WILL. DENIES ANY PAIN AT THIS TIME AND DENIES WANTING ANY PAIN MEDICATION. FUNDUS UU/FIRM. SCANT TO SMALL LOCHIA NOTED ON PAD. DENIES NEEDS.
--- NOTE | 2019-04-13 09:47 | NUR ---
UP TO BATHROOM -RINGS CALL LIGHT. STATES HAD BM AND NEEDS HELP WITH ELIANA CARE. REQUESTING PAIN MEDICATION- CO PAIN AT INCISION AND HEADACHE. RATES PAIN AN 8 ON SCALE OF 0-10. MED GIVEN
--- NOTE | 2019-04-13 09:50 | NUR ---
DR ESCAMILLA CALLS UNIT AND REPORTS THAT HE IS GOING TO HAVE [facility] CALL IN SCRIPT FOR [facility]. INFORMED PT OF THIS.
--- NOTE | 2019-04-13 10:24 | NUR ---
PT STATES THAT SHE GOT T-DAP VACCINE AT MD OFFICE ALREADY.
[2019-04-13] MEDS ORDERED: DILAUDID2 MG PO (10:30)
[2019-04-13] MEDS ORDERED: COLACE100 MG PO (10:32)
[2019-04-13] MEDS ORDERED: TORADOL10 MG PO (10:32)
--- NOTE | 2019-04-13 11:00 | NUR ---
DISCHARGE INST VERBAL AND WRITTEN GIVEN. SCRIPTS X3 GIVEN ALONG WITH PT MED REC AND DRUG DATA SHEETS. SEE ALSO PT INST SIGN SHEET. PFW POST SURGERY AND POST INST SHEET GIVEN. AWHONN INFO SHEET GIVEN. PT HEALTH SUMMARY GIVEN. INSTRUCTED TO READ AND WILL ANSWER QUESTIONS.
--- NOTE | 2019-04-13 11:17 | NUR ---
NOTIFIED SUPERVISIOR THAT MID LINE NEEDS TO BE REMOVED. SHE REQUESTS THAT I CALL [facility] WITH IV ACCESS TEAM. PHONED [facility] WITH ACCESS TEAM AND SHE INSTRUCTS THIS NURSE TO REMOVE CATH AND NOTE IF 15CM AND MIGHT NEED TO HOLD PRESSURE X 5 MIN.
--- NOTE | 2019-04-13 11:39 | NUR ---
MIDLINE CATH REMOVED- 15CM WITHOUT PROBLEMS. PRESSURE HELD X 8 MINUTES WITHOUT BLEEDING. BANDAIDE APPLIED.
--- NOTE | 2019-04-13 12:15 | NUR ---
NURSERY FINISHED WITH DISCHARGE. PT STATES SHE IS READY TO GO HOME.
--- NOTE | 2019-04-13 12:31 | NUR ---
DISCHARGED HOME WITH . TO AUTO VIA W/C.
[2019-04-14] MEDS ORDERED: REGLAN10 MG PO (10:44)
[2019-04-14] MEDS ORDERED: XANAX2 MG PO (10:45)
== END 2019-04-13 12:31 | disposition home or self-care (01) | DRG 788 ==
LOC: D.LD 23:35 → D.WS 23:35
PROVIDERS: ADMIT Obstetrics & Gynecology; ATTEND Obstetrics & Gynecology
PROC: 05HA33Z Insertion of Infusion Device into Left Brachial Vein, Percutaneous Approach (ICD-10-PCS; 2019-04-10)
PROC: 10D00Z1 Extraction of Products of Conception, Low, Open Approach (ICD-10-PCS; principal; 2019-04-11 01:00)
DX: O14.94 Unspecified pre-eclampsia, complicating childbirth (principal); Z3A.37 37 weeks gestation of pregnancy; Z37.0 Single live birth; O76 Abnormality in fetal heart rate and rhythm complicating labor and delivery; O99.214 Obesity complicating childbirth

== ENCOUNTER 2019-04-14 10:39 | Emergency (ER) | payer BC ==
[~2019-04-14 10:39] MED LIST changes: +ACETAMINOPHEN500 M1 PO; +BENADRYL50 MG; +COLACE100 MG PO; +CYCLOBENZAPRINE10 MG PO; +DILAUDID2 MG PO; +TORADOL10 MG PO
[2019-04-14 10:42] VITALS: Ht 152.4 cm
[2019-04-14] MEDS ORDERED: REGLAN10 MG PO (10:44)
[2019-04-14] MEDS ORDERED: XANAX2 MG PO (10:45)
[2019-04-14 11:12] LABS: BASOPHILS 0.3 % (0-2); EOSINOPHILS 5.1 % (0-7); HEMATOCRIT 26.2 % (36.0-48.0); HEMOGLOBIN 8.7 g/dL (12-16); IMMATURE GRANULOCYTES 0.7 % (0-5); LYMPHOCYTES 16.2 % (15-50); MCH 29.4 pg (26.0-34.0); MCHC 33.2 g/dL (31.0-37.0); MCV 88.5 fL (80.0-100.0); MEAN PLATELET VOLUME 9.9 fL (7.4-10.4); MONOCYTES 7.7 % (2-11); PLATELET COUNT 291 10x3/uL (130-400); RBC 2.96 10x6/uL (4.00-5.40); RDW 14.9 % (11.5-14.5); WBC 10.5 10x3/uL (4.8-10.8)
[2019-04-14 11:25] LABS: ALKALINE PHOSPHATASE 155 U/L (46-116); ALT (SGPT) 31 U/L (10-68); BILIRUBIN - TOTAL 0.22 mg/dL (0.2-1.3); CALC OSMOLALITY 278 mosm/kg (275-300); CALCIUM 8.5 mg/dL (8.5-10.1); CARBON DIOXIDE 26.1 mmol/L (21.0-32.0); CHLORIDE - SERUM 105 mmol/L (98-107); CREATININE - SERUM 0.7 mg/dL (0.6-1.3); GLUCOSE 95 mg/dL (74-106); POTASSIUM - SERUM 3.3 mmol/L (3.5-5.1); PROTEIN - SERUM 5.8 g/dL (6.4-8.2); SODIUM 141 mmol/L (136-145); UREA NITROGEN 7 mg/dL (7-18); eGFR NON AFRICAN AMERICAN > 90 mL/min (90-120)
[2019-04-14 13:59] VITALS: BP 142/86
== END 2019-04-14 14:01 | disposition home or self-care (01) ==
LOC: D.ER 10:39
PROVIDERS: Family Medicine
DX: G97.1 Other reaction to spinal and lumbar puncture (principal)